=== PATIENT | male | born 1975 | race Caucasian/White ===

== ENCOUNTER 2016-10-28 10:37 | Emergency (ER) | payer MEDICARE, OTHER ==
[2016-10-28 10:43] VITALS: BP 131/78; PULSE 80; RESP 18; TEMP 97.7
[2016-10-28] MEDS ORDERED: HYDROCORTISONE 1% CREAM 30 GM TUBE TOPICAL STA (10:54)
[2016-10-28] MEDS ORDERED: IBUPROFEN 600 MG STARTER PACK 4 TAB BTL PO STA (10:54)
[2016-10-28] MEDS ORDERED: diphenhydrAMINE 50 MG CAP PO STA (10:59)
[2016-10-28] MEDS ORDERED: diphenhydrAMINE 25 MG CAP PO STA (10:59)
--- NOTE | 2016-10-28 11:01 | ED ---
General Adult HPI - General Chief complaint: Skin/Abscess/Foreign Body Stated complaint: abscess on neck Time Seen by Provider: 10/28/16 10:54 Source: patient, RN notes reviewed Mode of arrival: ambulatory Limitations: no limitations - History of Present Illness Initial comments: Patient's a 41-year-old male who presents emergency room today with a chief complaint of being stung by a yellow jacket approximate hour ago. He does admit that it's happened when he was taking out the trash. He states he got stung left side of his neck. He states she's not ALLERGIC. He does admit to some local tenderness. He denies any other complaints. Patient denies any recent fever, chills, shortness of breath, chest pain, back pain, abdominal pain , nausea or vomiting, numbness or tingling, dysuria or hematuria, constipation or diarrhea, headaches or visual changes, or any other complaints. Denies any tongue swelling, lip swelling, difficulty breathing. - Related Data Previous Rx's Medication Instructions Recorded diphenhydrAMINE [Benadryl] 1 - 2 tab PO Q6HR PRN #20 capsule 10/28/16 Allergies Allergy/AdvReac Type Severity Reaction Status Date / Time No Known Allergies Allergy Verified 10/28/16 10:42 Review of Systems ROS Statement: Those systems with pertinent positive or pertinent negative responses have been documented in the HPI. ROS Other: All systems not noted in ROS Statement are negative. Past Medical History Past Medical History: No Reported History History of Any Multi-Drug Resistant Organisms: None Reported Past Surgical History: Orthopedic Surgery Additional Past Surgical History / Comment(s): knee surg Past Psychological History: No Psychological Hx Reported Smoking Status: Never smoker Past Alcohol Use History: None Reported Past Drug Use History: None Reported General Exam Limitations: no limitations Course Vital Signs 10/28/16 10:39 Temperature 97.7 F Pulse Rate 80 Respiratory 18 Rate Blood Pressure 131/78 O2 Sat by Pulse 99 Oximetry Medical Decision Making - Medical Decision Making The patient given topical hydrocodone cream to use to the affected area with a starter pack and ibuprofen. Is advised to return here to the emergency room and he symptoms increase or worsen or for any other concerns. Disposition Clinical Impression: Bee sting Disposition: HOME SELF-CARE Condition: Good Instructions: Insect Bite or Sting (ED) Additional Instructions: Please Use ibuprofen for pain. Please use hydrocortisone cream for irritation and redness to the skin topically 3 times daily. Please use Benadryl for any itching or swelling to the area 1-2 tabs every 6 hours. Please return to emergency room if any symptoms increase or worsen or for any other concerns. Prescriptions: diphenhydrAMINE [Benadryl] 1 - 2 tab PO Q6HR PRN #20 capsule PRN Reason: Allergic Reaction Time of Disposition: 11:01
== END 2016-10-28 11:11 | disposition home or self-care (01) ==
LOC: EC 10:37
DX: T63.441A Toxic effect of venom of bees, accidental (unintentional), initial encounter (principal)
CPT/HCPCS: 99282

== ENCOUNTER → 2017-05-13 | Outpatient (CLI) | payer MEDICARE, OTHER ==
--- NOTE | 2017-05-13 12:28 | MR ---
EXAMINATION TYPE: MR lumbar spine wo con DATE OF EXAM: 05/13/2017 COMPARISON: NONE HISTORY: Low back pain TECHNIQUE: Multiplanar, multisequence images of the lumbar spine were acquired. L1-L2: Normal disc appearance without desiccation. No herniation, protrusion or disc bulging. No ca nal stenosis is present. Foramina are patent bilaterally. L2-L3: Normal disc appearance without desiccation. No herniation, protrusion or disc bulging. No ca nal stenosis is present. Foramina are patent bilaterally. L3-L4: Normal disc appearance without desiccation. No herniation, protrusion or disc bulging. No ca nal stenosis is present. Foramina are patent bilaterally. L4-L5: Broad-based posterior disc bulge again noted causing mild anterior mass effect on the thecal s ac. No significant central stenosis. Facet arthropathy again noted with hypertrophy of the ligamentum flavum. L5-S1: Stable appearance. There is loss of disc height and signal. Posterior disc herniation may caus e mass effect on the proximal S1 nerve roots, contact the anterior thecal sac as on prior exam. Hyper trophic changes of the facets again noted. Lumbar segments are intact. No paraspinal masses are identified. Conus medullaris has a normal appe arance. Lumbar vertebral bodies show stable height, alignment, and bone marrow signal. IMPRESSION: Essentially stable degenerative disc disease as described, correlate for S1 radiculopathy.
== END | disposition home or self-care (01) ==
LOC: RADMRIMAIN 08:20
PROVIDERS: ATTEND Physician Assistant
DX: M51.36 Other intervertebral disc degeneration, lumbar region (principal)
CPT/HCPCS: 72148

== ENCOUNTER 2018-12-21 19:19 | Emergency (ER) | payer MEDICARE, OTHER ==
[2018-12-21 19:57] VITALS: BP 128/64; PULSE 76; RESP 18; TEMP 98.5
--- NOTE | 2018-12-21 20:50 | ED ---
General Adult HPI - General Chief complaint: Extremity Problem,Nontraumatic Stated complaint: Swollen Toe, toenail pain Time Seen by Provider: 12/21/18 20:00 Source: patient, RN notes reviewed Mode of arrival: ambulatory Limitations: no limitations - History of Present Illness Initial comments: 43-year-old male presents to the emergency department for ingrown toe nail. States this has been ongoing for one day. States she usually sees his comb setter for this with the he should come to the emergency department for quicker care. States it is painful to walk on. Denies any streaking redness. Denies any fevers or chills.Patient has no other complaints at this time including shortness of breath, chest pain, abdominal pain, nausea or vomiting, headache, or visual changes. - Related Data Previous Rx's Medication Instructions Recorded diphenhydrAMINE [Benadryl] 1 - 2 tab PO Q6HR PRN #20 capsule 10/28/16 Cephalexin [Keflex] 500 mg PO Q6HR 3 Days #12 cap 12/21/18 Allergies Allergy/AdvReac Type Severity Reaction Status Date / Time No Known Allergies Allergy Verified 12/21/18 19:57 Review of Systems ROS Statement: Those systems with pertinent positive or pertinent negative responses have been documented in the HPI. ROS Other: All systems not noted in ROS Statement are negative. Past Medical History Past Medical History: No Reported History History of Any Multi-Drug Resistant Organisms: None Reported Past Surgical History: Orthopedic Surgery Additional Past Surgical History / Comment(s): knee surg Past Psychological History: No Psychological Hx Reported Smoking Status: Never smoker Past Alcohol Use History: None Reported Past Drug Use History: None Reported General Exam Limitations: no limitations General appearance: alert, in no apparent distress Head exam: Present: atraumatic, normocephalic, normal inspection Eye exam: Present: normal appearance, PERRL, EOMI. Absent: scleral icterus, conjunctival injection, periorbital swelling ENT exam: Present: normal exam, mucous membranes moist Respiratory exam: Present: normal lung sounds bilaterally. Absent: respiratory distress, wheezes, rales, rhonchi, stridor Cardiovascular Exam: Present: regular rate, normal rhythm, normal heart sounds. Absent: systolic murmur, diastolic murmur, rubs, gallop, clicks Extremities exam: Present: other (Medial aspect of the second of toes left foot toenail ingrown. No abscess or any cellulitic changes. Mild erythema likely related to inflammation.) Course Vital Signs 12/21/18 19:54 Temperature 98.5 F Pulse Rate 76 Respiratory 18 Rate Blood Pressure 128/64 O2 Sat by Pulse 97 Oximetry Medical Decision Making - Medical Decision Making 43-year-old male presents for ingrown toenail. States this has been ongoing for about one day. On exam patient does have an ingrown toenail noted on the medial aspect of the second toenail left foot. 1/4 Medial Edge of this toenail was removed after anesthetizing the area with a digital block. Patient put on 3 days of Keflex to prevent infection. Recommended following up with his comb setter and returning here for any worsening symptoms. Disposition Clinical Impression: Ingrown toenail of left foot Disposition: HOME SELF-CARE Condition: Good Instructions (If sedation given, give patient instructions): Ingrown Nail (ED) Additional Instructions: Please take antibiotic as directed. Do warm soaks. Follow up with your comb setter in 1-2 days. Return here for any worsening symptoms. Prescriptions: Cephalexin [Keflex] 500 mg PO Q6HR 3 Days #12 cap Is patient prescribed a controlled substance at d/c from ED?: No Referrals: Jason Naranjo DO [Primary Care Provider] - 1-2 days Mich Tate DPM [STAFF PHYSICIAN] - 1-2 days Time of Disposition: 20:49
== END 2018-12-21 20:54 | disposition home or self-care (01) ==
LOC: EC 19:19
DX: L60.0 Ingrowing nail (principal)
CPT/HCPCS: 11765; 99283

== ENCOUNTER 2020-05-17 14:53 | Emergency (ER) | payer MEDICARE, OTHER ==
[2020-05-17 15:03] VITALS: BP 131/82; PULSE 75; RESP 16; TEMP 97.8
[2020-05-17] MEDS ORDERED: KETOROLAC 15 MG/ML 1 ML VIAL IM STA (16:19)
[2020-05-17] MEDS ORDERED: predniSONE 50 MG TAB PO STA (16:19)
--- NOTE | 2020-05-17 16:43 | XR ---
EXAMINATION TYPE: XR lumbar spine 2 or 3V DATE OF EXAM: 05/17/2020 COMPARISON: NONE HISTORY: Back pain TECHNIQUE: FINDINGS: 3 views were obtained. Vertebra have normal alignment. Disc spaces are fairly normal. Poste rior elements are intact. There is minimal spurring of the endplates. Sacroiliac joints appear normal . IMPRESSION: Negative lumbar spine exam. No fracture.
[2020-05-17] MEDS ORDERED: ACET/COD 300 MG/30 MG STARTER PACK 6 TAB BTL PO STA (17:18)
--- NOTE | 2020-05-17 17:19 | ED ---
Disposition Clinical Impression: Lumbar back pain Disposition: HOME SELF-CARE Instructions (If sedation given, give patient instructions): Acute Low Back Pain (ED) Additional Instructions: Follow up with PCP and orthopedic consult tomorrow. Return to ED with any wors ening symptoms. Prescriptions: predniSONE 50 mg PO DAILY #5 tab Is patient prescribed a controlled substance at d/c from ED?: No Referrals: Jason Naranjo DO [Primary Care Provider] - 1-2 days Dion Lewis MD [STAFF PHYSICIAN] - 1-2 days
--- NOTE | 2020-05-17 17:19 | ED ---
General Adult HPI - General Chief complaint: Back Pain/Injury Stated complaint: lower back pain Time Seen by Provider: 05/17/20 16:07 Source: patient, RN notes reviewed, old records reviewed Mode of arrival: ambulatory Limitations: no limitations - History of Present Illness Initial comments: 44-year-old male patient to ED for evaluation of lumbar back discomfort. Patient reports he has chronic back pain that he gets injections every 6 months or so but has not gotten his in some time due to the covid pandemic. He reports that for the last 3 days she has been having some paralumbar back pain. Reports it's worse with lifting. He does report that he sometimes has some radiculopathy down the right leg. Denies any saddle anesthesia denies any lower extremity weakness or loss of bowel or bladder control. Systemic: Pt denies fatigue, fever/chills, rash. Pt denies weakness, night sweats, weight loss. Neuro: Pt denies headache, visual disturbances, syncope or pre-syncope. HEENT: Pt denies ocular discharge or irritation, otalgia, rhinorrhea, pharyngitis or notable lymphadenopathy. Cardiopulmonary: Pt denies chest pain, SOB, heart palpitations, dyspnea on exertion. Abdominal/GI: Pt denies abdominal pain, n/v/d. : Pt denies dysuria, burning w/ urination, frequency/urgency. Denies new onset urinary or bowel incontinence. MSK: Pt denies myalgia, loss of strength or function in extremities. Neuro: Pt denies new onset weakness, paresthesias. - Related Data Previous Rx's Medication Instructions Recorded diphenhydrAMINE [Benadryl] 1 - 2 tab PO Q6HR PRN #20 capsule 10/28/16 Cephalexin [Keflex] 500 mg PO Q6HR 3 Days #12 cap 12/21/18 predniSONE 50 mg PO DAILY #5 tab 05/17/20 Allergies Allergy/AdvReac Type Severity Reaction Status Date / Time No Known Allergies Allergy Verified 05/17/20 15:02 Review of Systems ROS Statement: Those systems with pertinent positive or pertinent negative responses have been documented in the HPI. ROS Other: All systems not noted in ROS Statement are negative. Past Medical History Past Medical History: Hyperlipidemia Additional Past Medical History / Comment(s): glaucoma, History of Any Multi-Drug Resistant Organisms: None Reported Past Surgical History: Orthopedic Surgery Additional Past Surgical History / Comment(s): knee surg Past Psychological History: No Psychological Hx Reported Smoking Status: Never smoker Past Alcohol Use History: None Reported Past Drug Use History: None Reported General Exam - General Exam Comments Initial Comments: Constitutional: NAD, AOX3, Pt has pleasant affect. HEENT: NC/AT, trachea midline, neck supple, no lymphadenopathy. External ears appear normal, without discharge. Mucous membranes moist. Eyes PERRLA, EOM intact. There is no scleral icterus. No pallor noted. Cardiopulmonary: RRR, no murmurs, rubs or gallops, no JVD noted. Lungs CTAB in anterior and posterior rojas. No peripheral edema. Abdominal exam: Abdomen soft and non-distended. Abdomen non-tender to palpation in all 4 quadrants. Bowel sounds active in LLQ. No hepatosplenomegaly. No ecchymosis Neuro: CN II-XII grossly intact. No nuchal rigidity. No raccon eyes, no cronin sign, no hemotympanum. No cervical spinal tenderness. MSK: Mild lumbar tenderness. No skin changes. No posterior calf tenderness bilaterally. Posterior tibialis and radial pulse +2 bilaterally. Sensation intact in upper and lower extremities. Full active ROM in upper and lower extremities, 5/5 stregnth. Feel the toe walking intact. 5 out of 5 strength psoas and quadriceps muscles. Limitations: no limitations Course Vital Signs 05/17/20 15:00 Temperature 97.8 F Pulse Rate 75 Respiratory 16 Rate Blood Pressure 131/82 O2 Sat by Pulse 99 Oximetry Medical Decision Making - Medical Decision Making 44-year-old male patient to ED for this sedation of back pain. Patient felt signs are stable, afebrile. Physical exam doesn't display some tenderness. Strength and sensation is intact. Plain film is negative. Patient initiated on steroids will discharge the patient follow up and return precautions. Case discussed with Dr. Jeffrey. Disposition Clinical Impression: Lumbar back pain Disposition: HOME SELF-CARE Instructions (If sedation given, give patient instructions): Acute Low Back Pain (ED) Additional Instructions: Follow up with PCP tomorrow. Return to ED with any worsening symptoms. Prescriptions: predniSONE 50 mg PO DAILY #5 tab Is patient prescribed a controlled substance at d/c from ED?: No Referrals: Jason Naranjo DO [Primary Care Provider] - 1-2 days
== END 2020-05-17 17:35 | disposition home or self-care (01) ==
LOC: EC 14:53
DX: M54.5 Low back pain (principal)
CPT/HCPCS: 99284 ×2; 96372 ×2; 72100; J1885; J7512

== ENCOUNTER → 2024-01-02 | Outpatient (CLI) | payer MEDICARE, OTHER ==
[2024-01-02 09:04] LABS: HCT 45.5 % (39.0-53.0); MCHC 33.1 g/dL (31.0-37.0); MCV 90.5 fL (80.0-100.0); Mean Platelet Volume 8.4; Platelet Count 237 k/uL (150-450); RBC 5.02 m/uL (4.30-5.90); RDW 12.4 % (11.5-15.5); WBC 5.2 k/uL (3.8-10.6)
[2024-01-02 17:05] LABS: Appearance,Urine Turbid (Clear); Bilirubin,Urine Negative (Negative); Blood,Urine Negative (Negative); Color,Urine Yellow (Yellow); Ketones,Urine Negative (Negative); Nitrite,Urine Negative (Negative); PH, Urine 5.5; Specific Gravity,Urine 1.026 (1.001-1.030)
[2024-01-02 17:09] LABS: Bacteria,Urine None Seen (None Seen)
[2024-01-02 17:51] LABS: ALT 31 U/L (10-49); AST 26 U/L (14-35); Albumin 4.7 g/dL (3.8-4.9); Albumin/Globulin Ratio 2.04 Ratio (1.60-3.17); Alkaline Phosphatase 101 U/L (41-126); Blood Urea Nitrogen 19.6 mg/dL (9.0-27.0); Calcium 9.4 mg/dL (8.7-10.3); Carbon Dioxide 23.3 mmol/L (21.6-31.8); Chloride 106 mmol/L (96-109); Chol/HDL Ratio 6.95 Ratio; Globulin 2.3 g/dL (1.6-3.3); Glucose 102 mg/dL (70-110); LDL Cholesterol,Calculated 168.3 mg/dL (0.0-131.0); Potassium 4.2 mmol/L (3.5-5.5); Prostate Specific Antigen 1.52 ng/mL (0.000-2.500); Sodium 142 mmol/L (135-145); Total Bilirubin 0.3 mg/dL (0.3-1.2)
== END | disposition home or self-care (01) ==
LOC: LABWHC1 08:16
PROVIDERS: ATTEND Family Medicine
DX: Z00.01 Encounter for general adult medical examination with abnormal findings (principal); E66.9 Obesity, unspecified
CPT/HCPCS: 36415; 80053; 80061; 81001; 82306; 83036; 84153; 84443; 85027

== ENCOUNTER 2024-03-05 12:15 | Day surgery (SDC) | payer MEDICARE, OTHER ==
[2024-03-05 14:20] VITALS: RESP 18; TEMP 97.9
[2024-03-05] MEDS: LACTATED RINGERS 1,000 ML IV SCH (14:30)
[2024-03-05] MEDS: IV FLUID CONTINUATION 1,000 ML IV ONE (14:30)
[2024-03-05] MEDS ORDERED: PROPOFOL 10 MG/ML 20 ML VIAL IV ONE (15:51)
--- NOTE | 2024-03-05 16:17 | P.PCN ---
Date of Procedure: 03/05/24 Procedure(s) Performed: BRIEF HISTORY: Patient is a 48-year-old pleasant white male scheduled for an elective colonoscopy as a part of screening for colon cancer PROCEDURE PERFORMED: Colonoscopy. PREOPERATIVE DIAGNOSIS: Screening for colon cancer. IV sedation per Anesthesia. PROCEDURE: After informed consent was obtained, the patient, was brought into the endoscopy unit. IV sedation was administered by Anesthesia under continuous monitoring. Digital rectal examination was normal. Initially the Olympus CF-160 flexible video colonoscope was then inserted in the rectum, gradually advanced into the cecum without any difficulty. Careful examination was performed as the scope was gradually being withdrawn. Ileocecal valve and the appendiceal orifice were visualized and appeared normal. Prep was excellent. Mucosa of the cecum, ascending colon, transverse colon, descending colon, sigmoid colon, and rectum appeared normal. Retroflexion was performed in the rectum and no lesions were seen. The patient tolerated the procedure well. IMPRESSION: Normal-appearing colon from rectum to cecum with no evidence of colorectal neoplasia. RECOMMENDATIONS: Findings of this examination were discussed with the patient as well as his family. He was advised to have repeat screening colonoscopy in 10 years..
[2024-03-05 16:39] VITALS: PULSE 72
[2024-03-05 16:51] VITALS: BP 141/93
== END 2024-03-05 16:51 | disposition home or self-care (01) ==
LOC: ORWHC2ENDO 12:15
PROVIDERS: ATTEND Internal Medicine Gastroenterology
DX: Z12.11 Encounter for screening for malignant neoplasm of colon
CPT/HCPCS: 45378